=== PATIENT | female | born 1960 | race Caucasian/White ===

== ENCOUNTER 2018-09-09 13:32 | Inpatient (IN) | payer MEDICARE ==
[~2018-09-09] VITALS: Ht 160 cm; Wt 68.0 kg
[2018-09-09 15:31] LABS: BASOPHILS ABSOLUTE AUTO 0.05 K/mm3 (0.00-0.23); BASOPHILS PERCENT AUTO 0 % (0-2); EOSINOPHILS ABSOLUTE AUTO 0.66 K/mm3 (0.00-0.68); EOSINOPHILS PERCENT AUTO 4 % (0-6); Hematocrit 33.1 % (33.0-51.0); Hemoglobin 10.2 g/dL (11.5-16.0); IMMATURE GRAN ABSOLUTE AUTO 0.08 K/mm3 (0.00-0.10); IMMATURE GRAN PERCENT AUTO 1 % (0-1); LYMPHOCYTES ABSOLUTE AUTO 3.24 K/mm3 (0.84-5.20); LYMPHOCYTES PERCENT AUTO 19 % (21-46); MONOCYTES ABSOLUTE AUTO 1.31 K/mm3 (0.16-1.47); MONOCYTES PERCENT AUTO 8 % (4-13); Mean Corpuscular HGB 26.5 pg (26.0-34.0); Mean Corpuscular HGB Conc 30.8 g/dL (31.5-36.5); Mean Corpuscular Volume 86 fL (80-100); Mean Platelet Volume 9.1 fL (9.1-12.4); NEUTROPHILS ABSOLUTE AUTO 11.73 K/mm3 (1.96-9.15); NEUTROPHILS PERCENT AUTO 69 % (41-73); Platelet Count 487 K/mm3 (150-400); RDW Coefficient Variation 14.5 % (11.7-14.2); RDW Standard Deviation 45.1 fL (35.1-46.3); Red Blood Cell Count 3.85 M/mm3 (3.80-5.20); White Blood Cell Count 17.07 K/mm3 (4.00-11.30)
[2018-09-09 15:45] LABS: Source, Urine Catheter
[2018-09-09 15:49] LABS: Alanine Aminotransfer (ALT/SGP 26 U/L (12-78); Albumin, Blood 2.9 g/dL (3.4-5.0); Albumin/Globulin Ratio 0.6 (0.8-1.8); Alk Phos 125 U/L (50-136); Anion Gap 3 mmol/L (6-16); Aspartate Aminotrans (AST/SGOT 17 U/L (12-37); Bilirubin, Total 0.1 mg/dL (0.1-1.0); Blood Urea Nitrogen 12 mg/dL (8-24); Bun/Creatinine Ratio 19.9 (12.0-20.0); CO2, Blood 29 mmol/L (21-32); Calcium, Blood 8.9 mg/dL (8.5-10.1); Chloride, Blood 104 mmol/L (98-108); Globulin, Blood 5.2 g/dL (2.2-4.0); Glomerular Filtration Rate >60 (60-); Glucose, Blood 91 mg/dL (70-99); Potassium, Blood 4.1 mmol/L (3.5-5.5); Sodium, Blood 136 mmol/L (136-145); Total Protein, Blood 8.1 g/dL (6.4-8.2)
[2018-09-09 15:57] LABS: Prothrombin Time Results 10.6 Sec (9.7-11.5)
[2018-09-09 16:00] LABS: Appearance, Urine Clear (Clear); Bilirubin, Urine Neg (Neg); Blood, Urine Neg (Neg); Color, Urine Yellow (P-Yellow); Glucose Qualitative, Urine Neg (Neg); Ketones, Urine Neg (Neg); Leukocyte Esterase, Urine Neg (Neg); Nitrite, Urine Neg (Neg); Protein, Urine Neg (Neg); Urobilinogen, Urine NORM (Normal)
[2018-09-09 17:53] LABS: C-REACTIVE PROTEIN, EXT RANGE 9.64 mg/dL (0.000-0.300)
[2018-09-09 17:58] LABS: Magnesium, Blood 2.3 mg/dL (1.6-2.4); Phosphorus, Blood 2.7 mg/dL (2.5-4.9)
[2018-09-09 18:03] LABS: Thyroid Stimulating Hormone 1.37 uIU/mL (0.360-4.800)
[2018-09-09 22:13] LABS: U Amphetamine Screen DETECTED; U Barbituate Screen Not Detected; U Benzodiazapine Screen DETECTED; U Buprenorphine Screen Not Detected; U Cannabinoids Screen Not Detected; U Cocaine Screen Not Detected; U Methadone Screen Not Detected; U Methamphetamine Screen DETECTED; U Opiates Screen DETECTED; U Oxycodone Screen Not Detected; U Phencyclidine Screen Not Detected; U Propoxyphene Screen Not Detected
[2018-09-10 06:08] LABS: Hematocrit 32.4 % (33.0-51.0); Hemoglobin 9.8 g/dL (11.5-16.0); Mean Corpuscular HGB 25.7 pg (26.0-34.0); Mean Corpuscular HGB Conc 30.2 g/dL (31.5-36.5); Mean Corpuscular Volume 85 fL (80-100); Mean Platelet Volume 9.1 fL (9.1-12.4); Platelet Count 423 K/mm3 (150-400); RDW Coefficient Variation 14.6 % (11.7-14.2); RDW Standard Deviation 44.9 fL (35.1-46.3); Red Blood Cell Count 3.81 M/mm3 (3.80-5.20); White Blood Cell Count 12.92 K/mm3 (4.00-11.30)
[2018-09-10 06:25] LABS: Alanine Aminotransfer (ALT/SGP 25 U/L (12-78); Albumin, Blood 2.5 g/dL (3.4-5.0); Albumin/Globulin Ratio 0.5 (0.8-1.8); Alk Phos 122 U/L (50-136); Anion Gap 4 mmol/L (6-16); Aspartate Aminotrans (AST/SGOT 18 U/L (12-37); Bilirubin, Total 0.1 mg/dL (0.1-1.0); Blood Urea Nitrogen 11 mg/dL (8-24); Bun/Creatinine Ratio 18.6 (12.0-20.0); CO2, Blood 27 mmol/L (21-32); Calcium, Blood 8.6 mg/dL (8.5-10.1); Chloride, Blood 106 mmol/L (98-108); Creatinine, Blood 0.59 mg/dL (0.40-1.00); Globulin, Blood 5.1 g/dL (2.2-4.0); Glomerular Filtration Rate >60 (60-); Glucose, Blood 111 mg/dL (70-99); Magnesium, Blood 2.3 mg/dL (1.6-2.4); Potassium, Blood 4.3 mmol/L (3.5-5.5); Sodium, Blood 137 mmol/L (136-145); Total Protein, Blood 7.6 g/dL (6.4-8.2)
--- NOTE | 2018-09-10 06:30 | NUR ---
NOC SHIFT SUMMARY PT WAS ADMITTED LAST NIGHT FOR SEPSIS AND ABSCESSES TO HER L SHOULDER, BILAT HIPS, AND THIGH. CALL WAS PLACED FOR SURGICAL CONSULT THIS AM. SHE HAS BEEN PLEASANT AND COOPERATIVE. TREATED FOR PAIN PER EMAR. SHE HAS SLEPT MUCH OF NIGHT. VSS. WILL CONTINUE TO MONITOR.
--- NOTE | 2018-09-10 14:54 | NUR ---
PATIENT STATES IT HURTS TO FLUSH. NO INFILTRATION NOTED. USING PICC LINE FOR ADMINISTRATION
--- NOTE | 2018-09-10 18:24 | NUR ---
PATIENT TO AND I AND D TOMORROW. SHE IS GOING THROUGH DETOX BUT IS PLEASANT AND COOPERATIVE WITH CARES. SHE HAS SLEPT MOST OF THE SHIFT. NO ACUTE CHANGES. ABX GIVEN PER ORDER.
[2018-09-10 18:47] LABS: Vancomycin, Trough 18.8 ug/mL (5.0-10.0)
[2018-09-11 01:08] LABS: HBSAG SCREEN Negative (Negative); HEP B CORE AB, TOT Negative (Negative); HIV SCREEN 4TH GENERATION WRFX Non Reactive (Non Reactive)
[2018-09-11 05:50] LABS: BASOPHILS ABSOLUTE AUTO 0.06 K/mm3 (0.00-0.23); BASOPHILS PERCENT AUTO 0 % (0-2); EOSINOPHILS ABSOLUTE AUTO 0.59 K/mm3 (0.00-0.68); EOSINOPHILS PERCENT AUTO 4 % (0-6); Hematocrit 31.4 % (33.0-51.0); IMMATURE GRAN ABSOLUTE AUTO 0.08 K/mm3 (0.00-0.10); IMMATURE GRAN PERCENT AUTO 1 % (0-1); LYMPHOCYTES ABSOLUTE AUTO 4.32 K/mm3 (0.84-5.20); LYMPHOCYTES PERCENT AUTO 32 % (21-46); MONOCYTES ABSOLUTE AUTO 1.02 K/mm3 (0.16-1.47); MONOCYTES PERCENT AUTO 8 % (4-13); Mean Corpuscular HGB Conc 31.8 g/dL (31.5-36.5); Mean Corpuscular Volume 85 fL (80-100); Mean Platelet Volume 9.2 fL (9.1-12.4); NEUTROPHILS ABSOLUTE AUTO 7.38 K/mm3 (1.96-9.15); NEUTROPHILS PERCENT AUTO 55 % (41-73); Platelet Count 440 K/mm3 (150-400); RDW Coefficient Variation 14.4 % (11.7-14.2); RDW Standard Deviation 44.3 fL (35.1-46.3); White Blood Cell Count 13.45 K/mm3 (4.00-11.30)
[2018-09-11 06:05] LABS: Anion Gap 5 mmol/L (6-16); Blood Urea Nitrogen 12 mg/dL (8-24); Bun/Creatinine Ratio 18.7 (12.0-20.0); CO2, Blood 28 mmol/L (21-32); Calcium, Blood 8.9 mg/dL (8.5-10.1); Chloride, Blood 108 mmol/L (98-108); Creatinine, Blood 0.64 mg/dL (0.40-1.00); Glomerular Filtration Rate >60 (60-); Glucose, Blood 97 mg/dL (70-99); Potassium, Blood 4.2 mmol/L (3.5-5.5); Sodium, Blood 141 mmol/L (136-145)
--- NOTE | 2018-09-11 06:39 | NUR ---
NOC SHIFT SUMMARY PT HAS BEEN PLEASANT AND COOPERATIVE WITH CARE THIS NIGHT. SHE HAS HAD SOME PAIN IN HER L SHOULDER, FOR WHICH SHE WAS TREATED PER EMAR. SHE HAS SLEPT MOST OF THE NIGHT. CURRENTLY APPEARS TO BE SLEEPING AND IN NO ACUTE DISTRESS. VSS. WILL CONTINUE TO MONITOR.
--- NOTE | 2018-09-11 08:19 | NUR ---
PATIENT DENIES ALELRGY TO SILK TAPE. SILK TAPE USED TO TAPE NOSE RING, EYE BROW RING AND FINGER RINGERS TO LEFT HAND IN PLACE. KELVINKET WARMER INTACT. PATIENT STATES SHE HAS GONE THROUGH MENOPAUSE. NO HCG TEST DONE.
--- NOTE | 2018-09-11 15:15 | NUR ---
Patient's RN, upon approval of patient, requested spiritual care for patient. Patient openly shared about personal issues, her spiritual journey and her desire to live a healthier life. I listened empathically, reinforced helpful attitudes, provided pastoral intellectual property counsel, gave ideas for agencies and services available, heard confession, and provided prayer. Patient responded well to all interventions and displayed evidence of renewed hope, restored edi and catharsis.
--- NOTE | 2018-09-11 17:35 | NUR ---
PATIENT AND I & D DONE THIS MORNING. DRESSINGS CDI. PATIENT MEDICATED FOR PAIN PER EMAR. SHE HAS BEEN ALERT AND ORIENTED AND PLEASANT ALL SHIFT. PATIENT IS EXPRESSING DESIRE TO DETOX AND REMAIN CLEAN. TITO ANDERSON WAS IN AND SS CAME IN TO DISCUSS OPTIONS. THIS NURSE EDUCATED PATIENT REGARDING ISSUES RELATED TO HER ADDICTION AND DRUG USE. PATIENT CONTINUES TO REST AND OTHER THAN PAIN HAS HAD NO COMPLAINTS. SHE IS COOPERATIVE WITH ALL CARES.
--- NOTE | 2018-09-12 05:01 | NUR ---
*SHIFT SUMMARY* PATIENT IS ALERT AND ORIENTED. COMPLAINS OF PAIN IN LEFT ARM AND RIGHT THIGH. PATIENT SLEPT OFF AND ON THROUGHOUT THE NIGHT. PATIENT GETS UP TO USE BATHROOM INDEPENDENTLY. VITALS STABLE. DRESSINGS ARE CLEAN AND INTACT. KALANI WRAP MOVED A LITTLE FOR COMFORT.
[2018-09-12 06:04] LABS: BASOPHILS ABSOLUTE AUTO 0.05 K/mm3 (0.00-0.23); BASOPHILS PERCENT AUTO 0 % (0-2); EOSINOPHILS ABSOLUTE AUTO 0.49 K/mm3 (0.00-0.68); EOSINOPHILS PERCENT AUTO 4 % (0-6); Hematocrit 30.9 % (33.0-51.0); Hemoglobin 9.5 g/dL (11.5-16.0); IMMATURE GRAN ABSOLUTE AUTO 0.06 K/mm3 (0.00-0.10); IMMATURE GRAN PERCENT AUTO 1 % (0-1); LYMPHOCYTES ABSOLUTE AUTO 3.87 K/mm3 (0.84-5.20); LYMPHOCYTES PERCENT AUTO 32 % (21-46); MONOCYTES ABSOLUTE AUTO 0.93 K/mm3 (0.16-1.47); MONOCYTES PERCENT AUTO 8 % (4-13); Mean Corpuscular HGB 26.3 pg (26.0-34.0); Mean Corpuscular HGB Conc 30.7 g/dL (31.5-36.5); Mean Corpuscular Volume 86 fL (80-100); Mean Platelet Volume 9.3 fL (9.1-12.4); NEUTROPHILS ABSOLUTE AUTO 6.76 K/mm3 (1.96-9.15); NEUTROPHILS PERCENT AUTO 56 % (41-73); Platelet Count 421 K/mm3 (150-400); RDW Coefficient Variation 14.5 % (11.7-14.2); RDW Standard Deviation 44.6 fL (35.1-46.3); Red Blood Cell Count 3.61 M/mm3 (3.80-5.20); White Blood Cell Count 12.16 K/mm3 (4.00-11.30)
[2018-09-12] MEDS ORDERED: ACET325 PO (13:47)
[2018-09-12] MEDS ORDERED: CEPH500 PO (13:49)
[2018-09-12] MEDS ORDERED: FAMO20 PO (13:49)
[2018-09-12] MEDS ORDERED: ONDA4ODT MM (13:50)
[2018-09-12] MEDS ORDERED: Nicotine Patch1 EAC5 TOP (13:50)
[2018-09-12] MEDS ORDERED: Florastor250 MG PO (13:51)
[2018-09-12] MEDS ORDERED: Bactrim Ds Tab1 EACH PO (13:51)
--- NOTE | 2018-09-12 14:18 | NUR ---
SHIFT SUMMARY/ DC PT IS ALERT AND ORIENTATED AND INDEPENDENT TO THE BR. PT COMPLAINS OF PAIN IN LEFT SHOULDER MEDICATED PER EMAR. PT WALKED THE HALLS THIS SHIFT AND HAD A VISITOR. DRESSING ON LEFT ARM AND RIGHT HIP WERE CHANGED TODAY. PT DC THIS AFTERNOON, RIDE WAS WAITING, TALKED WITH PT ABOUT FOLLOW UP WITH [facility] AND POROVIDED PT WITH NEW PT PACKET FOR CLINIC IN [facility].
--- NOTE | 2018-09-12 14:50 | NUR ---
I CONCUR WITH [facility]HER DOCUMENTATION
== END 2018-09-12 14:08 | disposition home or self-care (01) | DRG 872 ==
LOC: ER 13:32 → MEDS 17:30
PROVIDERS: Pharmacist; Physician Assistant; Surgery; ADMIT Family Medicine
PROC: 02HV33Z Insertion of Infusion Device into Superior Vena Cava, Percutaneous Approach (ICD-10-PCS; 2018-09-09)
PROC: 0R9K3ZX Drainage of Left Shoulder Joint, Percutaneous Approach, Diagnostic (ICD-10-PCS; principal; 2018-09-11 08:45)
PROC: 0S9930Z Drainage of Right Hip Joint with Drainage Device, Percutaneous Approach (ICD-10-PCS; 2018-09-11 08:45)
DX: A41.9 Sepsis, unspecified organism (principal); L02.414 Cutaneous abscess of left upper limb; L02.415 Cutaneous abscess of right lower limb; L03.114 Cellulitis of left upper limb; F17.210 Nicotine dependence, cigarettes, uncomplicated; F19.10 Other psychoactive substance abuse, uncomplicated; D63.8 Anemia in other chronic diseases classified elsewhere; F32.9 Major depressive disorder, single episode, unspecified; F41.9 Anxiety disorder, unspecified
CPT/HCPCS: 36415; 36569; 71046; 80048; 80053; 80202; 81003; 82150; 83605; 83690; 83735; 84100; 84443; 85025; 85027; 85610; 85651; 85730; 86140; 86704; 86708; 86803; 87086; 87340; 87389; 93005; 93010; 93306; 96365; 96375; 99285-25; C1751; J0690; J1170; J1650; J1885; J2250; J2405; J2704; J3010; J3370; J7030; J7050; J7120

== ENCOUNTER 2019-03-05 18:11 | Emergency (ER) | payer MEDICARE ==
[~2019-03-05] VITALS: Ht 160 cm; Wt 63.5 kg
[~2019-03-05 18:11] MED LIST: ACET325 PO; Bactrim Ds Tab1 EACH PO; CEPH500 PO; FAMO20 PO; Florastor250 MG PO; Nicotine Patch1 EAC5 TOP; ONDA4ODT MM
[2019-03-05 19:23] LABS: BASOPHILS ABSOLUTE AUTO 0.07 K/mm3 (0.00-0.23); BASOPHILS PERCENT AUTO 1 % (0-2); EOSINOPHILS ABSOLUTE AUTO 0.14 K/mm3 (0.00-0.68); EOSINOPHILS PERCENT AUTO 1 % (0-6); Hematocrit 44.3 % (33.0-51.0); Hemoglobin 13.5 g/dL (11.5-16.0); IMMATURE GRAN ABSOLUTE AUTO 0.05 K/mm3 (0.00-0.10); IMMATURE GRAN PERCENT AUTO 0 % (0-1); LYMPHOCYTES ABSOLUTE AUTO 3.92 K/mm3 (0.84-5.20); LYMPHOCYTES PERCENT AUTO 25 % (21-46); MONOCYTES ABSOLUTE AUTO 1.53 K/mm3 (0.16-1.47); MONOCYTES PERCENT AUTO 10 % (4-13); Mean Corpuscular HGB 27.6 pg (26.0-34.0); Mean Corpuscular HGB Conc 30.5 g/dL (31.5-36.5); Mean Corpuscular Volume 90 fL (80-100); NEUTROPHILS ABSOLUTE AUTO 9.79 K/mm3 (1.96-9.15); NEUTROPHILS PERCENT AUTO 63 % (41-73); RDW Coefficient Variation 15.1 % (11.7-14.2); RDW Standard Deviation 50.2 fL (35.1-46.3)
[2019-03-05 19:33] LABS: Mean Platelet Volume 10.5 fL (9.1-12.4); Platelet Count 255 K/mm3 (150-400)
[2019-03-05 19:44] LABS: Alanine Aminotransfer (ALT/SGP 31 U/L (12-78); Albumin, Blood 3.4 g/dL (3.4-5.0); Albumin/Globulin Ratio 0.7 (0.8-1.8); Alk Phos 122 U/L (50-136); Anion Gap 4 mmol/L (6-16); Aspartate Aminotrans (AST/SGOT 27 U/L (12-37); Bilirubin, Total 0.3 mg/dL (0.1-1.0); Blood Urea Nitrogen 16 mg/dL (8-24); Bun/Creatinine Ratio 28.4 (12.0-20.0); CO2, Blood 23 mmol/L (21-32); Calcium, Blood 9.2 mg/dL (8.5-10.1); Chloride, Blood 108 mmol/L (98-108); Creatinine, Blood 0.56 mg/dL (0.40-1.00); Globulin, Blood 4.8 g/dL (2.2-4.0); Glomerular Filtration Rate >60 (60-); Glucose, Blood 109 mg/dL (70-99); Potassium, Blood 4.4 mmol/L (3.5-5.5); Sodium, Blood 135 mmol/L (136-145); Total Protein, Blood 8.2 g/dL (6.4-8.2); Troponin I <0.015 ng/mL (0.000-0.040)
[2019-03-05] MEDS ORDERED: NAPR550 PO (20:47)
== END 2019-03-05 21:56 | disposition home or self-care (01) ==
LOC: ER 18:11
PROVIDERS: Physician Assistant
DX: R09.1 Pleurisy (principal); F17.210 Nicotine dependence, cigarettes, uncomplicated; Z88.1 Allergy status to other antibiotic agents; Z91.048 Other nonmedicinal substance allergy status; Z79.899 Other long term (current) drug therapy
CPT/HCPCS: 36415; 71046; 80053; 84484; 85025; 85379; 93005; 93010; 96374; 99284-25; J1885

== ENCOUNTER 2019-03-22 15:17 | Emergency (ER) | payer MEDICARE, OTHER ==
[~2019-03-22] VITALS: Ht 160 cm; Wt 63.5 kg
[~2019-03-22 15:17] MED LIST changes: +NAPR550 PO
[2019-03-22 15:59] LABS: BASOPHILS ABSOLUTE AUTO 0.05 K/mm3 (0.00-0.23); BASOPHILS PERCENT AUTO 0 % (0-2); EOSINOPHILS ABSOLUTE AUTO 0.14 K/mm3 (0.00-0.68); EOSINOPHILS PERCENT AUTO 1 % (0-6); Hemoglobin 13.4 g/dL (11.5-16.0); IMMATURE GRAN ABSOLUTE AUTO 0.09 K/mm3 (0.00-0.10); IMMATURE GRAN PERCENT AUTO 1 % (0-1); LYMPHOCYTES ABSOLUTE AUTO 3.73 K/mm3 (0.84-5.20); LYMPHOCYTES PERCENT AUTO 22 % (21-46); MONOCYTES ABSOLUTE AUTO 1.05 K/mm3 (0.16-1.47); MONOCYTES PERCENT AUTO 6 % (4-13); Mean Corpuscular HGB 27.4 pg (26.0-34.0); Mean Corpuscular HGB Conc 31.9 g/dL (31.5-36.5); Mean Corpuscular Volume 86 fL (80-100); Mean Platelet Volume 9.5 fL (9.1-12.4); NEUTROPHILS ABSOLUTE AUTO 12.31 K/mm3 (1.96-9.15); NEUTROPHILS PERCENT AUTO 71 % (41-73); Platelet Count 507 K/mm3 (150-400); RDW Coefficient Variation 14.5 % (11.7-14.2); RDW Standard Deviation 45.9 fL (35.1-46.3); Red Blood Cell Count 4.89 M/mm3 (3.80-5.20); White Blood Cell Count 17.37 K/mm3 (4.00-11.30)
[2019-03-22 16:02] LABS: Source, Urine Clean Catch
[2019-03-22 16:05] LABS: Bilirubin, Urine Neg (Neg); Blood, Urine 1+ (Neg); Glucose Qualitative, Urine Neg (Neg); Ketones, Urine 1+ (Neg); Leukocyte Esterase, Urine 1+ (Neg); Nitrite, Urine Neg (Neg); Protein, Urine Neg (Neg); Specific Gravity, Urine 1.025 (1.003-1.022); Urobilinogen, Urine NORM (Normal)
[2019-03-22 16:22] LABS: Appearance, Urine Clear (Clear); Color, Urine Yellow (P-Yellow)
[2019-03-22 16:23] LABS: Calcium Oxalate Crystals Mod /hpf
[2019-03-22 16:24] LABS: Bacteria Few /hpf; Red Blood Cells, Urine 0-2 /hpf (0-2); Squamous Epithelial Cells Few /hpf (Few)
[2019-03-22 16:29] LABS: Alanine Aminotransfer (ALT/SGP 16 U/L (12-78); Albumin, Blood 3.2 g/dL (3.4-5.0); Albumin/Globulin Ratio 0.7 (0.8-1.8); Alk Phos 117 U/L (50-136); Anion Gap 9 mmol/L (6-16); Aspartate Aminotrans (AST/SGOT 7 U/L (12-37); Bilirubin, Total 0.2 mg/dL (0.1-1.0); Blood Urea Nitrogen 14 mg/dL (8-24); Bun/Creatinine Ratio 22.2 (12.0-20.0); CO2, Blood 24 mmol/L (21-32); Calcium, Blood 9.1 mg/dL (8.5-10.1); Chloride, Blood 106 mmol/L (98-108); Creatinine, Blood 0.63 mg/dL (0.40-1.00); Globulin, Blood 4.7 g/dL (2.2-4.0); Glomerular Filtration Rate >60 (60-); Glucose, Blood 174 mg/dL (70-99); Potassium, Blood 3.7 mmol/L (3.5-5.5); Sodium, Blood 139 mmol/L (136-145); Total Protein, Blood 7.9 g/dL (6.4-8.2)
[2019-03-22] MEDS ORDERED: CEPH500 PO (17:30)
[2019-03-22] MEDS ORDERED: Bactrim Ds Tab1 EACH PO (17:30)
[2019-03-22] MEDS ORDERED: ONDA4ODT MM (17:30)
== END 2019-03-22 18:09 | disposition home or self-care (01) ==
LOC: ER 15:17
PROVIDERS: Physician Assistant
DX: L02.415 Cutaneous abscess of right lower limb (principal); L03.115 Cellulitis of right lower limb; D72.829 Elevated white blood cell count, unspecified; R11.2 Nausea with vomiting, unspecified; R19.7 Diarrhea, unspecified; F17.200 Nicotine dependence, unspecified, uncomplicated; Z88.1 Allergy status to other antibiotic agents
CPT/HCPCS: 10061; 36415; 80053; 81001; 83690; 85025; 87070; 87075; 87077; 87086; 87147; 87186; 87205; 96361-59; 96374-59; 96375-59; 99283-25; A9270-GY; J1885; J2405; J7030

== ENCOUNTER 2019-06-14 19:00 | Emergency (ER) | payer MEDICARE, OTHER ==
[~2019-06-14] VITALS: Ht 160 cm; Wt 63.5 kg
[2019-06-14 20:09] LABS: BASOPHILS ABSOLUTE AUTO 0.07 K/mm3 (0.00-0.23); BASOPHILS PERCENT AUTO 1 % (0-2); EOSINOPHILS ABSOLUTE AUTO 0.18 K/mm3 (0.00-0.68); EOSINOPHILS PERCENT AUTO 1 % (0-6); Hematocrit 45.2 % (33.0-51.0); Hemoglobin 15.1 g/dL (11.5-16.0); IMMATURE GRAN ABSOLUTE AUTO 0.06 K/mm3 (0.00-0.10); IMMATURE GRAN PERCENT AUTO 0 % (0-1); LYMPHOCYTES PERCENT AUTO 34 % (21-46); MONOCYTES ABSOLUTE AUTO 0.72 K/mm3 (0.16-1.47); MONOCYTES PERCENT AUTO 5 % (4-13); Mean Corpuscular HGB 30.2 pg (26.0-34.0); Mean Corpuscular HGB Conc 33.4 g/dL (31.5-36.5); Mean Corpuscular Volume 90 fL (80-100); Mean Platelet Volume 9.4 fL (9.1-12.4); NEUTROPHILS ABSOLUTE AUTO 8.19 K/mm3 (1.96-9.15); NEUTROPHILS PERCENT AUTO 59 % (41-73); Platelet Count 425 K/mm3 (150-400); RDW Coefficient Variation 15.1 % (11.7-14.2); RDW Standard Deviation 50.1 fL (35.1-46.3); White Blood Cell Count 13.92 K/mm3 (4.00-11.30)
[2019-06-14 20:32] LABS: Alanine Aminotransfer (ALT/SGP 30 U/L (12-78); Albumin, Blood 4.2 g/dL (3.4-5.0); Albumin/Globulin Ratio 0.9 (0.8-1.8); Alk Phos 131 U/L (50-136); Anion Gap 6 mmol/L (6-16); Aspartate Aminotrans (AST/SGOT 11 U/L (12-37); Bilirubin, Total 0.1 mg/dL (0.1-1.0); Blood Urea Nitrogen 16 mg/dL (8-24); Bun/Creatinine Ratio 28.4 (12.0-20.0); CO2, Blood 25 mmol/L (21-32); Calcium, Blood 9.6 mg/dL (8.5-10.1); Chloride, Blood 109 mmol/L (98-108); Creatinine, Blood 0.56 mg/dL (0.40-1.00); Globulin, Blood 4.7 g/dL (2.2-4.0); Glomerular Filtration Rate >60 (60-); Glucose, Blood 117 mg/dL (70-99); Potassium, Blood 4.2 mmol/L (3.5-5.5); Sodium, Blood 140 mmol/L (136-145); Total Protein, Blood 8.9 g/dL (6.4-8.2)
[2019-06-14 21:32] LABS: Source, Urine Clean Catch
[2019-06-14 21:36] LABS: Appearance, Urine Clear (Clear); Bilirubin, Urine Neg (Neg); Blood, Urine 1+ (Neg); Color, Urine Yellow (P-Yellow); Glucose Qualitative, Urine Neg (Neg); Ketones, Urine Neg (Neg); Leukocyte Esterase, Urine Neg (Neg); Nitrite, Urine Neg (Neg); Protein, Urine Neg (Neg); Urobilinogen, Urine NORM (Normal)
[2019-06-14 21:44] LABS: Bacteria Few /hpf; Red Blood Cells, Urine 0-2 /hpf (0-2); Squamous Epithelial Cells Rare /hpf (Few); White Blood Cells, Urine 0-2 /hpf (0-5)
== END 2019-06-15 01:31 | disposition home or self-care (01) ==
LOC: ER 19:00
PROVIDERS: Physician Assistant
DX: R10.12 Left upper quadrant pain (principal); I50.9 Heart failure, unspecified; F17.200 Nicotine dependence, unspecified, uncomplicated
CPT/HCPCS: 36415; 80053; 81001; 83690; 85025; 96360; 96361; 99284-25; J7030

== ENCOUNTER 2024-07-09 10:30 | Day surgery (SDC) | payer MEDICARE, OTHER ==
[~2024-07-09] VITALS: Ht 160 cm; Wt 69.7 kg
[2024-07-09] MEDS ORDERED: CeFAZolin Sodium 2,000 MG VIAL ONE (10:53)
[2024-07-09] MEDS ORDERED: VARENICLINE TART1 M2 PO (10:59)
[2024-07-09] MEDS ORDERED: OMEP20ER PO (11:00)
[2024-07-09] MEDS ORDERED: VRAYLAR1.5 MG PO (11:00)
[2024-07-09] MEDS ORDERED: ERGO400 PO (11:01)
[2024-07-09] MEDS ORDERED: ZOLOFT10013 PO (11:01)
[2024-07-09] MEDS ORDERED: ROSUVASTATIN CA20 MG PO (11:01)
[2024-07-09 11:16] VITALS: BP 138/75
[2024-07-09] MEDS ORDERED: Lidocaine HCl 2% 10 ML SDA ONE (11:43)
[2024-07-09] MEDS ORDERED: Bupivacaine 0.5% W/EPI 1:200000 SDV 30 ML Vial ONE (11:43)
--- NOTE | 2024-07-09 13:02 | NUR ---
07/09/24 1302 IreneEloy porrasenricoharley PT STATED SHE WAS A "HARD IV STICK". MULTIPLE RNS, A MA, AND AN ANESTHESIOLOGIST ATTEMPTED IV START. PT HAD 10 IV ATTEMPTS 20G,22G, AND 24G IV ATTEMPTED ON BILATERAL ARMS AND LEFT FOOT. BLOOD RETURN ON MULTIPLE STICKS, NO IV ATTEMPT WAS ABLE TO ADVANCE CATHETER FOR IV USE D/T VEINS BEING "TOO SMALL". EMILIANO AND COBAN PLACED ON ATTEMPTS. PT TOLERATED ALL IV STARTS WELL AND WAS CHECKED ON BY MULTIPLE TEAM MEMBERS IF PT CAN TOLERATE IV START EACH TIME. PT AGREED. MD, ANESTHESIOLOGIST, AND PT DECIDED TO CANCEL CASE D/T UNABLE TO GET IV START. MD SPOKE WITH PATIENT, CASE WILL BE RESCHEDULED BY MD OFFICE, PT WILL NEED TO GET CENTRAL LINE PLACED AT [facility] WITH ATC BEFORE RESCHEDULED PROCEDURE TO ENSURE PT HAS IV LINE PLACED. MD ADVISED PT TO LET FUTURE SURGEONS KNOW CENTRAL LINE IS ADVISED FOR FUTURE PROCEDURES D/T DIFFICULTY WITH IV STARTS. PT AGREED TO ALL PLANS AND DETAILS GIVEN FROM MD. CARE TEAM WITH IV STARTS INCLUDED ADY Li RN, MADHU DONOVAN, ANTONI HIRSCH/ALDO, ANA MARÍA SIMMS CRNA, AND ADRIANA Klein RN.
== END 2024-07-09 12:50 | disposition home or self-care (01) ==
LOC: ORSCSDS 10:30
DX: M79.671 Pain in right foot (principal); M20.5X1 Other deformities of toe(s) (acquired), right foot; Z53.9 Procedure and treatment not carried out, unspecified reason
CPT/HCPCS: J0690; J2003

== ENCOUNTER 2024-07-15 03:41 | Day surgery (SDC) | payer MEDICARE, OTHER ==
[~2024-07-15 03:41] MED LIST changes: +ERGO400 PO; +OMEP20ER PO; +ROSUVASTATIN CA20 MG PO; +VARENICLINE TART1 M2 PO; +VRAYLAR1.5 MG PO; +ZOLOFT10013 PO
[2024-07-15 09:03] VITALS: BP 122/69
[2024-07-15] MEDS ORDERED: Lidocaine HCl/Pf 1% 5 ML VIAL INFIL SCH (09:10)
[2024-07-16] MEDS ORDERED: FLUTICASONE-SA1 EA10 (12:46)
== END 2024-07-15 09:55 | disposition home or self-care (01) ==
LOC: ATC 03:41
DX: Z45.2 Encounter for adjustment and management of vascular access device (principal); M20.5X1 Other deformities of toe(s) (acquired), right foot; F32.A Depression, unspecified; Z87.891 Personal history of nicotine dependence; Z79.1 Long term (current) use of non-steroidal anti-inflammatories (NSAID); Z79.899 Other long term (current) drug therapy; Z88.1 Allergy status to other antibiotic agents
CPT/HCPCS: 99211; C1751; J2003

== ENCOUNTER 2024-07-16 11:41 | Day surgery (SDC) | payer MEDICARE, OTHER ==
[~2024-07-16] VITALS: Ht 160 cm; Wt 69.1 kg
[~2024-07-16 11:41] MED LIST changes: +Lactated Ringer's 1,000 ML IV ONE
[2024-07-16] MEDS ORDERED: Lactated Ringer's 1,000 ML IV ONE (12:45)
[2024-07-16] MEDS ORDERED: FLUTICASONE-SA1 EA10 (12:46)
--- NOTE | 2024-07-16 12:56 | NUR ---
07/16/24 [email or web address] Aiad Gamez 1230: PATIENT ARRIVED TO FACILITY WITH MIDLINE TO RUE. LINE FLUSHES EASILY AND ABLE TO DRAW BLOOD BACK. FLUSHED WITH 10 CC NS AND ATTACHED TO LR FLUIDS AT TKO RATE PER ORDERS.
[2024-07-16] MEDS ORDERED: CeFAZolin Sodium 2,000 MG VIAL ONE (13:19)
[2024-07-16] MEDS ORDERED: Bupivacaine 0.5% W/EPI 1:200000 SDV 30 ML Vial ONE (13:57)
[2024-07-16] MEDS ORDERED: Lidocaine HCl 2% 10 ML SDA ONE (13:57)
[2024-07-16] MEDS ORDERED: propofoL 20 ML IV ONE (14:11)
[2024-07-16] MEDS ORDERED: FentaNYL Citrate 50 MCG/ML 2 ML Injection ONE (14:11)
[2024-07-16] MEDS ORDERED: Midazolam HCl 1MG / ML 2ML Vial ONE (14:12)
[2024-07-16] MEDS ORDERED: Ondansetron HCl 2 MG / ML 2ML Vial ONE (14:56)
--- NOTE | 2024-07-16 15:05 | NUR ---
07/16/24 1505 MISAEL JARA GIVEN FOR NAUSEA, EMESIS/HEAVES, SEE EMAR
[2024-07-16 15:10] VITALS: BP 130/85
[2024-07-16] MEDS ORDERED: Metoclopramide HCl 5MG / ML 2ML Vial ONE (15:23)
--- NOTE | 2024-07-16 15:57 | NUR ---
07/16/24 2257 Osman Eduardo, DENIES NAUSEA AFTER GETTING REGLAN IV. PT ABLE TO TAKE IN SODA WITHOUT DIFFICULTY. PT FEELING BETTER. WHEELED OUT OF SDU WITH WHEELCHAIR. SON DELON PICKED PT UP AND TOOK HER HOME. PRESCRIPTIONS SENT WITH PATIENT.
== END 2024-07-16 16:00 | disposition home or self-care (01) ==
LOC: ORSCSDS 11:41
PROVIDERS: Podiatrist Foot & Ankle Surgery
PROC: 0QBN0ZZ Excision of Right Metatarsal, Open Approach (ICD-10-PCS; principal; 2024-07-16 13:30)
DX: M79.671 Pain in right foot (principal); M20.5X1 Other deformities of toe(s) (acquired), right foot; E78.5 Hyperlipidemia, unspecified; K21.9 Gastro-esophageal reflux disease without esophagitis; J44.9 Chronic obstructive pulmonary disease, unspecified; F32.A Depression, unspecified; Z87.891 Personal history of nicotine dependence; Z79.899 Other long term (current) drug therapy
CPT/HCPCS: J0690; J2003; J2250; J2405; J2704; J2765; J3010; J7120

== ENCOUNTER 2024-12-02 14:33 | Observation (INO) | payer MEDICARE, OTHER ==
[~2024-12-02] VITALS: Ht 160 cm; Wt 70.0 kg
[~2024-12-02 14:33] MED LIST changes: +FLUTICASONE-SA1 EA10; -Lactated Ringer's 1,000 ML IV ONE
[2024-12-02 15:17] LABS: BASOPHILS ABSOLUTE AUTO 0.06 K/mm3 (0.00-0.23); BASOPHILS PERCENT AUTO 1 % (0-2); EOSINOPHILS ABSOLUTE AUTO 0.22 K/mm3 (0.00-0.68); EOSINOPHILS PERCENT AUTO 2 % (0-6); Hematocrit 39.3 % (33.0-51.0); Hemoglobin 13.6 g/dL (11.5-16.0); IMMATURE GRAN ABSOLUTE AUTO 0.04 K/mm3 (0.00-0.10); IMMATURE GRAN PERCENT AUTO 0 % (0-1); LYMPHOCYTES ABSOLUTE AUTO 3.74 K/mm3 (0.84-5.20); LYMPHOCYTES PERCENT AUTO 37 % (21-46); MONOCYTES ABSOLUTE AUTO 0.89 K/mm3 (0.16-1.47); MONOCYTES PERCENT AUTO 9 % (4-13); Mean Corpuscular HGB Conc 34.6 g/dL (31.5-36.5); Mean Corpuscular Volume 88 fL (80-100); NEUTROPHILS ABSOLUTE AUTO 5.04 K/mm3 (1.96-9.15); NEUTROPHILS PERCENT AUTO 51 % (41-73); NRBC ABSOLUTE 0.00 K/mm3 (0.00-0.02); NRBC Auto 0.0 /100 WBC (0.0-0.2); RDW Coefficient Variation 12.7 % (11.7-14.2); RDW Standard Deviation 41.0 fL (35.1-46.3)
[2024-12-02 15:22] LABS: Alanine Aminotransfer (ALT/SGP 36.0 U/L (12-78); Albumin, Blood 3.8 g/dL (3.4-5.0); Albumin/Globulin Ratio 0.9 (0.8-1.8); Anion Gap 10.0 mmol/L (3-11); Aspartate Aminotrans (AST/SGOT 21.0 U/L (12-37); Bilirubin, Total 0.4 mg/dL (0.1-1.0); Blood Urea Nitrogen 15.0 mg/dL (8-24); CO2, Blood 22.0 mmol/L (21-32); Calcium, Blood 9.0 mg/dL (8.5-10.1); Chloride, Blood 110.0 mmol/L (98-108); Creatinine, Blood 0.8 mg/dL (0.40-1.00); Globulin, Blood 4.1 g/dL (2.2-4.0); Glucose, Blood 89.0 mg/dL (70-99); Potassium, Blood 4.1 mmol/L (3.5-5.5); Sodium, Blood 138.0 mmol/L (136-145); Total Protein, Blood 7.9 g/dL (6.4-8.2)
[2024-12-02] MEDS ORDERED: Ondansetron HCl 2 MG / ML 2ML Vial IV ONE (17:10)
[2024-12-02] MEDS ORDERED: TRAZ100 PO (21:26)
[2024-12-02 21:34] VITALS: BP 139/77
[2024-12-02] MEDS ORDERED: Ondansetron HCl 2 MG / ML 2ML Vial IV PRN (21:55)
[2024-12-03 01:45] VITALS: BP 116/60
[2024-12-03] MEDS ORDERED: ALBU90OI INH (03:51)
[2024-12-03] MEDS ORDERED: ALBUTEROL HFA 90 MCG (03:51)
[2024-12-03 05:08] VITALS: BP 110/79
--- NOTE | 2024-12-03 05:19 | NUR ---
SHIFT SUMMARY NOC PT A/O X 4. PLEASANT AND COOPERATIVE WITH CARE. VSS. ADMIT FOR CP THAT PT REPORTS HAS BEEN ONGOING FOR PAST FEW WEEKS. PT ONLY COMPLAINT UPON ARRIVING ON UNIT WAS NAUSEA AND MEDICATED WITH ZOFRAN. HOME MEDICATIONS HAVE BEEN RECONCILED WITH PT [facility] PT [facility] DANILO. PT HAS BEEN NPO SINCE MIDNIGHT FOR STRESS TEST TODAY. PT ON TELE SINUS RHYTHM IN 70'S, RHYTHM STRIP REVIEWED AND AGREE WITH RATE/RHTYHM. PT CURRENTLY RESTING WITH BED IN LOWEST POSITION, AND CALL LIGHT WITHIN REACH.
[2024-12-03 07:27] VITALS: BP 111/61
[2024-12-03] MEDS ORDERED: Enoxaparin 40 MG/0.4 ML SYR SC SCH (09:00)
[2024-12-03 11:42] VITALS: BP 128/75
[2024-12-03 15:58] VITALS: BP 127/75
--- NOTE | 2024-12-03 19:32 | NUR ---
SHIFT SUMMARY AND DISCHARGE PATIENT ALERT AND INTERACTIVE. PATIENT INDEPENDENT IN THE ROOM. NUCLEAR STRESS TEST COMPLETED AND CLEAR. DISCHARGE ORDERS PLACED. POWERGLIDE AND TELE REMOVED PRIOR TO DISCHARGE. PATIENT TAKEN OUT VIA WHEELCHAIR BY NOZZLE WORKER. DISCHARGE ORDERS REVIEWED WITH PATIENT. PATIENT INSTRUCTED TO MONITOR BLOOD PRESSURE AND PULSE. PATIENT WEARING ZIO PATCH BUT ADMITS THAT SHE IS NOT KEEPING A LOG OF EVENTS. RE EDUCATED PATIENT TO DO SO
== END 2024-12-03 19:15 | disposition home or self-care (01) ==
LOC: ER 14:33 → MEDS 14:34
PROVIDERS: Physician Assistant; ADMIT Student in an Organized Health Care Education/Training Program
DX: R07.89 Other chest pain (principal); K21.9 Gastro-esophageal reflux disease without esophagitis; E78.00 Pure hypercholesterolemia, unspecified; I11.0 Hypertensive heart disease with heart failure; I50.9 Heart failure, unspecified; R73.03 Prediabetes; Z87.891 Personal history of nicotine dependence; Z79.899 Other long term (current) drug therapy; Z88.1 Allergy status to other antibiotic agents; Z91.09 Other allergy status, other than to drugs and biological substances; Z90.49 Acquired absence of other specified parts of digestive tract; Z90.710 Acquired absence of both cervix and uterus; Z98.51 Tubal ligation status
CPT/HCPCS: 36415; 71046; 78452; 80053; 84484; 85025; 93005; 93010; 93017; 96372; 96374; 96376; 99285-25; A9270; A9500; C1751; G0378; J0706; J1650; J2405; J2785

== ENCOUNTER 2025-02-25 09:06 | Day surgery (SDC) | payer MEDICARE, OTHER ==
[~2025-02-25] VITALS: Ht 160 cm; Wt 67.5 kg
[~2025-02-25 09:06] MED LIST changes: +ALBU90OI INH; +ALBUTEROL HFA 90 MCG; +TRAZ100 PO
[2025-02-25] MEDS ORDERED: CeFAZolin Sodium 2,000 MG VIAL ONE (10:15)
[2025-02-25] MEDS ORDERED: Dexamethasone Sod Phos 10 MG/ML 1ML VIAL ONE (10:23)
[2025-02-25] MEDS ORDERED: Ketorolac Tromethamine 30mg Vial ONE (10:23)
[2025-02-25] MEDS ORDERED: Midazolam HCl 1MG / ML 2ML Vial ONE (10:23)
[2025-02-25] MEDS ORDERED: FentaNYL Citrate 50 MCG/ML 2 ML Injection ONE (10:23)
[2025-02-25] MEDS ORDERED: Ondansetron HCl 2 MG / ML 2ML Vial ONE (10:23)
[2025-02-25] MEDS ORDERED: Pepcid 20 mg Ta20 MG PO (10:26)
[2025-02-25] MEDS ORDERED: VITAMIN C (10:26)
[2025-02-25] MEDS ORDERED: CALCIUM (10:27)
--- NOTE | 2025-02-25 11:10 | NUR ---
02/25/25 1110 Aida Gamez 1015: RN NOTED PATIENT HAD REDNESS TO R SHOULDER, PT REPORTED IT HAS NOT BEEN LIKE THAT BEFORE, THAT IT DID NOT LOOK LIKE THAT WHEN SHE SHOWERED THIS MORNING. THE AREA IS NOT HOT TO TOUCH AND PT REPORTS IT IS NOT PAINFUL. 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 LOSS PREVENTION ASSOCIATE UPDATED, DR MAGANA NOTIFIED AND DR MAGANA WILL COME IN AND ASSESS THE AREA. 1050: DR MAGANA HAS ASSESSED THE REDNESS TO R SHOULDER AND DECIDED WE NEED TO CANCEL PROCEDURE TODAY AND POSTPONE IT FOR ANOTHER TIME. AT REQUEST OF DR MAGANA THIS RN WAS ABLE TO CALL DR MAGANA'S OFFICE AND MAKE AN APPOINTMENT FOR THE PATIENT ON Friday03/01/25 AT 1415. THIS WAS WRITTEN DOWN FOR PATIENT AND DR MAGANA PROVIDED PATIENT A PRESCRIPTION FOR AN ANTIBIOTIC A COPY OF WHICH WAS PLACED IN THE CHART. PT ENCOURAGED BOTH BY DR MAGANA AND THIS RN TO SEEK MEDICAL CARE/GO TO ER/CALL DR MAGANA'S OFFICE IF THE REDNESS GETS LARGER (AREA OUTLINED BY RN), GETS HOT, ANY CHANGES IN FEELING TO THE ARM (NUMBNESS OR TINGLING DIFFERENT THAN USUAL) OR IF SHE DEVELOPS A FEVER. PT VERBALIZED UNDERSTANDING. 1100: PT DRESSED AND ALL BELONGINGS RETURNED TO PATIENT INCLUDING PURSE AND PHONE. PATIENT DISCHARGED HOME.
[2025-02-25 11:16] VITALS: BP 121/74
== END 2025-02-25 11:25 | disposition home or self-care (01) ==
LOC: ORSCSDS 09:06
DX: M65.321 Trigger finger, right index finger (principal); Z53.9 Procedure and treatment not carried out, unspecified reason; M65.331 Trigger finger, right middle finger; M65.341 Trigger finger, right ring finger; M18.0 Bilateral primary osteoarthritis of first carpometacarpal joints
CPT/HCPCS: J0690; J1100; J1885; J2250; J2405; J2704; J3010; J7120

== ENCOUNTER 2025-04-13 11:39 | Day surgery (SDC) | payer MEDICARE, OTHER ==
[~2025-04-13] VITALS: Ht 160 cm; Wt 66.9 kg
[~2025-04-13 11:39] MED LIST changes: +CALCIUM; +Pepcid 20 mg Ta20 MG PO; +VITAMIN C
[2025-04-13] MEDS ORDERED: FLUT1DIS2 INH (12:06)
[2025-04-13] MEDS ORDERED: CeFAZolin Sodium 2,000 MG VIAL ONE (12:15)
[2025-04-13] MEDS ORDERED: Sodium Bicarb 8.4% 1 MEQ/ML 50 ML Vial ONE (12:45)
[2025-04-13] MEDS ORDERED: Midazolam HCl 1MG / ML 2ML Vial ONE (12:53)
[2025-04-13] MEDS ORDERED: NS 500 ML IV ONE (12:57)
--- NOTE | 2025-04-13 13:21 | NUR ---
04/13/25 1321 Diane Elliott PATIENT RECEIVED 2 MG IV VERSED, PER DR ZAPIEN, IN PRE OP. DELON PINEDA RN, NURSE MONITOR IN OR DURING PROCEDURE. SEE CHART FOR NURSE MONITOR VITAL SHEET. VSS. PT TOLERATED PROCEDURE WELL.
[2025-04-13] MEDS ORDERED: Ondansetron HCl 2 MG / ML 2ML Vial ONE (13:45)
[2025-04-13 14:46] VITALS: BP 128/75
--- NOTE | 2025-04-13 14:54 | NUR ---
04/13/25 Sara1 Maria [place] 1431 PT WAS MEDICATED WITH ZOFRAN 4 MG IVP FOR NAUSEA NO VOMITTING PER DR ZAPIEN VERBAL ORDER. MEDICATION IMMEDIATELY EFFECTIVE, PT WAS ABLE TO TOLERATE PO'S LIQ AND CRACKERS NAUSEA SUBSIDED. D/CD HOME IN STABLE CONDITION BELT SEWER INSPRIED [employer] TRANSPORTATION.
== END 2025-04-13 14:36 | disposition home or self-care (01) ==
LOC: ORSCSDS 11:39
PROVIDERS: Orthopaedic Surgery
PROC: 0LN70ZZ Release Right Hand Tendon, Open Approach (ICD-10-PCS; principal; 2025-04-13 13:50)
DX: M65.331 Trigger finger, right middle finger (principal); M65.321 Trigger finger, right index finger; M65.341 Trigger finger, right ring finger; E78.5 Hyperlipidemia, unspecified; F32.A Depression, unspecified; K21.9 Gastro-esophageal reflux disease without esophagitis; Z87.891 Personal history of nicotine dependence; Z79.82 Long term (current) use of aspirin; Z79.899 Other long term (current) drug therapy
CPT/HCPCS: A9270; J0690; J2250; J2405; J7120